=== PATIENT | female | born 1945 | race Caucasian/White ===

== ENCOUNTER 2018-05-31 18:41 | Inpatient (IN) | payer SELFPAY, OTHER ==
[2018-05-31] MEDS: morphine 4 MG/ML VIAL IV (19:27)
[2018-05-31] MEDS: ONDANSETRON 4 MG INJ IV (19:27)
[2018-05-31 20:10] LABS: ADD MAN DIFF? NO
[2018-05-31] MEDS: SOD CHLORIDE 0.9% 1,000 ML IV (20:10)
[2018-05-31 20:11] LABS: BASOPHILS % 0.2 % (0.0-2.0); EOSINOPHILS # 0.1 10^3/ul (0.0-0.5); EOSINOPHILS % 0.8 % (0.0-7.0); HEMATOCRIT 42.3 % (37.0-47.0); LYMPHOCYTES # 2.5 10^3/ul (0.8-2.9); LYMPHOCYTES % 27.5 % (15.0-51.0); MEAN CORPUSCULAR HEMOGLOBIN 28.3 pg (29.0-33.0); MEAN CORPUSCULAR HGB CONC 33.1 g/dl (32.0-37.0); MEAN CORPUSCULAR VOLUME 85.6 fl (82.0-101.0); MEAN PLATELET VOLUME 11.4 fl (7.4-10.4); MONOCYTE # 0.9 10^3/ul (0.3-0.9); MONOCYTES % 9.2 % (0.0-11.0); NEUTROPHIL # 5.7 10^3/ul (1.6-7.5); NEUTROPHILS % 61.9 % (39.0-77.0); PLATELET COUNT 232 10^3/UL (140-415); RED BLOOD COUNT 4.94 10^6/ul (4.20-5.40); RED CELL DISTRIBUTION WIDTH 12.5 % (11.5-14.5)
[2018-05-31 20:11] LABS: WHITE BLOOD COUNT 9.2 10^3/ul (4.8-10.8)
[2018-05-31 20:17] LABS: ALANINE AMINOTRANSFERASE 30 IU/L (13-69); ALBUMIN 4.6 g/dl (3.3-4.9); ALBUMIN/GLOBULIN RATIO 1.43; ALKALINE PHOSPHATASE 83 IU/L (42-121); ANION GAP 17 (8-16); ASPARTATE AMINO TRANSFERASE 24 IU/L (15-46); BILIRUBIN,INDIRECT 0.4 mg/dl (0-1.1); BILIRUBIN,TOTAL 0.4 mg/dl (0.2-1.3); BLOOD UREA NITROGEN 20 mg/dl (7-20); CALCIUM 10.1 mg/dl (8.4-10.2); CARBON DIOXIDE 28 mmol/L (21-31); CHLORIDE 100 mmol/L (97-110); CHOL/HDL RATIO 3.1 RATIO; CHOLESTEROL 144 mg/dl (100-200); CREATINE KINASE 40 IU/L (23-200); GLUCOSE 169 mg/dl (70-220); HDL CHOLESTEROL 46 mg/dl (33-92); LDL CHOLESTEROL,CALCULATED 73 mg/dl; SODIUM 141 mmol/L (135-144); TOTAL PROTEIN 7.8 g/dl (6.1-8.1); TRIGLYCERIDES 126 mg/dl (0-149)
[2018-05-31 20:19] LABS: INR 1.16; PARTIAL THROMBOPLASTIN TIME 30.3 Sec (25.0-35.0); PT RATIO 1.2
[2018-05-31 20:28] LABS: CK INDEX 0.9; CK-MB 0.37 ng/ml (0.0-2.4)
[2018-05-31 20:31] LABS: HEMOGLOBIN A1C 9.5 % (0-5.9)
[2018-05-31 20:32] LABS: TROPONIN-I < 0.012 ng/ml (0.000-0.120)
[2018-05-31] MEDS ORDERED: ACETAMINOPHEN 325 MG TAB PO (23:30)
[2018-05-31] MEDS ORDERED: ONDANSETRON 4 MG INJ IV (23:30)
[2018-06-01] MEDS: ASPIRIN 325 MG TAB PO (00:59)
[2018-06-01] MEDS: SOD CHLORIDE 0.9% 1,000 ML IV ×2 (01:44→03:00)
[2018-06-01] MEDS ORDERED: GLUCOSE GEL 15 GRAM TUBE PO ×2 (05:00)
[2018-06-01] MEDS ORDERED: GLUCOSE GEL 15 GRAM TUBE BUCCAL (05:00)
[2018-06-01] MEDS ORDERED: GLUCAGON 1 MG INJ IM (05:00)
[2018-06-01] MEDS ORDERED: DEXTROSE 50% 50 ML SYRINGE IV ×2 (05:00)
[2018-06-01] MEDS: INSULIN ASPART [NOVOLOG] 3 ML PEN SC ×4 (07:55→20:18)
[2018-06-01] MEDS: GABAPENTIN 300 MG CAP PO (08:14)
[2018-06-01] MEDS: DILTIAZEM (SR) 60 MG CAP PO ×2 (08:14→20:16)
[2018-06-01] MEDS: DORZOLAMIDE/TIMOLOL 10 ML OPH RIGHT EYE ×3 (08:14→20:16)
[2018-06-01] MEDS: ASPIRIN (EC) 81 MG TAB PO (08:14)
[2018-06-01] MEDS: BRIMONIDINE 0.2% 5 ML BTL RIGHT EYE ×3 (08:14→20:16)
[2018-06-01] MEDS: CHOLECALCIFEROL 2,000 UNIT CAP PO (08:15)
[2018-06-01] MEDS: VALSARTAN 160 MG TAB PO (08:15)
[2018-06-01] MEDS: HYDROCHLOROTHIAZIDE 25 MG TAB PO (08:15)
[2018-06-01] MEDS: INSULIN GLARGINE [LANtus] 3 ML PEN SC (08:32)
[2018-06-01] MEDS: ATORVASTATIN 20 MG TAB PO (20:15)
[2018-06-01] MEDS: hydrALAzine 20 MG INJ IV (21:00)
[2018-06-02] MEDS: ACCU-CHEK XX (02:18)
[2018-06-02] MEDS: SOD CHLORIDE 0.9% 1,000 ML IV (03:00)
[2018-06-02 07:39] LABS: ADD MAN DIFF? NO
[2018-06-02 07:45] LABS: WHITE BLOOD COUNT 7.1 10^3/ul (4.8-10.8)
[2018-06-02 07:45] LABS: BASOPHILS % 0.4 % (0.0-2.0); EOSINOPHILS # 0.1 10^3/ul (0.0-0.5); EOSINOPHILS % 1.7 % (0.0-7.0); HEMATOCRIT 39.1 % (37.0-47.0); HEMOGLOBIN 12.7 g/dl (12.0-16.0); LYMPHOCYTES # 1.8 10^3/ul (0.8-2.9); LYMPHOCYTES % 25.8 % (15.0-51.0); MEAN CORPUSCULAR HEMOGLOBIN 28.2 pg (29.0-33.0); MEAN CORPUSCULAR HGB CONC 32.5 g/dl (32.0-37.0); MEAN CORPUSCULAR VOLUME 86.9 fl (82.0-101.0); MEAN PLATELET VOLUME 11.1 fl (7.4-10.4); MONOCYTE # 0.7 10^3/ul (0.3-0.9); MONOCYTES % 9.3 % (0.0-11.0); NEUTROPHIL # 4.4 10^3/ul (1.6-7.5); NEUTROPHILS % 62.4 % (39.0-77.0); PLATELET COUNT 208 10^3/UL (140-415); RED CELL DISTRIBUTION WIDTH 12.4 % (11.5-14.5)
[2018-06-02 08:06] LABS: ANION GAP 18 (8-16); BLOOD UREA NITROGEN 23 mg/dl (7-20); CALCIUM 9.4 mg/dl (8.4-10.2); CARBON DIOXIDE 25 mmol/L (21-31); CHLORIDE 102 mmol/L (97-110); CHOL/HDL RATIO 3.2 RATIO; CHOLESTEROL 124 mg/dl (100-200); CREATININE 0.92 mg/dl (0.44-1.00); GLUCOSE 218 mg/dl (70-220); HDL CHOLESTEROL 38 mg/dl (33-92); LDL CHOLESTEROL,CALCULATED 60 mg/dl; POTASSIUM 3.9 mmol/L (3.5-5.1); SODIUM 141 mmol/L (135-144); TRIGLYCERIDES 128 mg/dl (0-149)
[2018-06-02] MEDS: INSULIN GLARGINE [LANtus] 3 ML PEN SC (08:13)
[2018-06-02] MEDS: INSULIN ASPART [NOVOLOG] 3 ML PEN SC ×6 (08:14→20:07)
[2018-06-02] MEDS: GABAPENTIN 300 MG CAP PO (08:42)
[2018-06-02] MEDS: HYDROCHLOROTHIAZIDE 25 MG TAB PO (08:42)
[2018-06-02] MEDS: ASPIRIN (EC) 81 MG TAB PO (08:42)
[2018-06-02] MEDS: VALSARTAN 160 MG TAB PO (08:42)
[2018-06-02] MEDS: CLOPIDOGREL 75 MG TAB NGT (08:43)
[2018-06-02] MEDS: BRIMONIDINE 0.2% 5 ML BTL RIGHT EYE ×3 (08:43→20:05)
[2018-06-02] MEDS: CHOLECALCIFEROL 2,000 UNIT CAP PO (08:43)
[2018-06-02] MEDS: DILTIAZEM (SR) 60 MG CAP PO ×2 (08:43→20:05)
[2018-06-02] MEDS: DORZOLAMIDE/TIMOLOL 10 ML OPH RIGHT EYE ×3 (08:43→20:05)
[2018-06-02] MEDS: [UNRECOGNIZED DRUG - REMARK] XX ×2 (10:00→17:18)
[2018-06-02] MEDS: AMLODIPINE 5 MG TAB PO (11:34)
[2018-06-02] MEDS: ATORVASTATIN 20 MG TAB PO (20:04)
[2018-06-03] MEDS: [UNRECOGNIZED DRUG - REMARK] XX ×2 (02:00→10:00)
[2018-06-03] MEDS: ACCU-CHEK XX (02:05)
[2018-06-03] MEDS: SOD CHLORIDE 0.9% 1,000 ML IV ×2 (03:00→05:56)
[2018-06-03] MEDS: INSULIN ASPART [NOVOLOG] 3 ML PEN SC ×7 (07:58→21:15)
[2018-06-03] MEDS: VALSARTAN 160 MG TAB PO (08:28)
[2018-06-03] MEDS: BRIMONIDINE 0.2% 5 ML BTL RIGHT EYE ×3 (08:28→20:26)
[2018-06-03] MEDS: DORZOLAMIDE/TIMOLOL 10 ML OPH RIGHT EYE ×3 (08:28→20:24)
[2018-06-03] MEDS: HYDROCHLOROTHIAZIDE 25 MG TAB PO (08:28)
[2018-06-03] MEDS: CHOLECALCIFEROL 2,000 UNIT CAP PO (08:29)
[2018-06-03] MEDS: GABAPENTIN 300 MG CAP PO (08:29)
[2018-06-03] MEDS: ASPIRIN (EC) 81 MG TAB PO (08:29)
[2018-06-03] MEDS: AMLODIPINE 5 MG TAB PO ×2 (08:29→20:24)
[2018-06-03] MEDS: CLOPIDOGREL 75 MG TAB NGT (08:29)
[2018-06-03] MEDS: DILTIAZEM (SR) 60 MG CAP PO ×2 (08:29→20:24)
[2018-06-03] MEDS: INSULIN GLARGINE [LANtus] 3 ML PEN SC (08:38)
[2018-06-03 09:22] LABS: ANION GAP 13 (8-16); BLOOD UREA NITROGEN 21 mg/dl (7-20); CALCIUM 9.2 mg/dl (8.4-10.2); CARBON DIOXIDE 25 mmol/L (21-31); CHLORIDE 107 mmol/L (97-110); CREATININE 0.94 mg/dl (0.44-1.00); GLUCOSE 190 mg/dl (70-220); POTASSIUM 4.1 mmol/L (3.5-5.1); SODIUM 141 mmol/L (135-144)
[2018-06-03] MEDS: DICLOFENAC 0.1% 2.5 ML OPH RIGHT EYE ×2 (17:31→20:24)
[2018-06-03] MEDS: hydrALAzine 20 MG INJ IV (20:23)
[2018-06-03] MEDS: ATORVASTATIN 20 MG TAB PO (20:24)
[2018-06-03 22:23] LABS: Allen Test ACCEPTAB; Arterial Base Excess -0.5 mmol/L (-3.0-3); Arterial Blood Gas Oxygen Sat 98.7 mmHG (95.0-100.0); Arterial COHb 0.2 % (0.0-3.0); Arterial Fraction of Oxyhgb 98.5 % (93.0-99.0); Arterial HCO3 22.8 mmol/L (22.0-26.0); Arterial MetHb 0 % (0.0-1.5); Arterial Total Hemglobin 13.3 g/dl (12.0-18.0); Arterial pCO2 33.5 mmhg (35-45); MODE NASAL CANNULA; Site Right Radial
[2018-06-04 01:19] LABS: TROPONIN-I < 0.010 ng/ml (0.000-0.120)
[2018-06-04] MEDS: ACCU-CHEK XX (02:00)
[2018-06-04] MEDS: INSULIN ASPART [NOVOLOG] 3 ML PEN SC ×7 (02:49→21:36)
[2018-06-04 07:22] LABS: CHOLESTEROL 121 mg/dl (100-200)
[2018-06-04 07:22] LABS: CHOL/HDL RATIO 3.1 RATIO; HDL CHOLESTEROL 39 mg/dl (33-92); LDL CHOLESTEROL,CALCULATED 55 mg/dl; TRIGLYCERIDES 136 mg/dl (0-149)
[2018-06-04 07:30] LABS: TROPONIN-I 0.014 ng/ml (0.000-0.120)
[2018-06-04 07:51] LABS: THYROID STIMULATING HORMONE 0.774 MIU/L (0.465-4.680)
[2018-06-04] MEDS: VALSARTAN 160 MG TAB PO (10:02)
[2018-06-04] MEDS: CLOPIDOGREL 75 MG TAB NGT (10:03)
[2018-06-04] MEDS: ASPIRIN (EC) 81 MG TAB PO (10:03)
[2018-06-04] MEDS: CHOLECALCIFEROL 2,000 UNIT CAP PO (10:03)
[2018-06-04] MEDS: GABAPENTIN 300 MG CAP PO (10:03)
[2018-06-04] MEDS: DICLOFENAC 0.1% 2.5 ML OPH RIGHT EYE ×4 (10:03→20:48)
[2018-06-04] MEDS: HYDROCHLOROTHIAZIDE 25 MG TAB PO (10:03)
[2018-06-04] MEDS: DORZOLAMIDE/TIMOLOL 10 ML OPH RIGHT EYE ×3 (10:04→20:48)
[2018-06-04] MEDS: BRIMONIDINE 0.2% 5 ML BTL RIGHT EYE ×3 (10:04→20:48)
[2018-06-04] MEDS: INSULIN GLARGINE [LANtus] 3 ML PEN SC (10:40)
[2018-06-04 13:18] LABS: TROPONIN-I < 0.010 ng/ml (0.000-0.120)
[2018-06-04 19:13] LABS: TROPONIN-I < 0.010 ng/ml (0.000-0.120)
[2018-06-04] MEDS: SOD CHLORIDE 0.9% 100 ML (19:28)
[2018-06-04] MEDS: IOHEXOL 300MG/ML 150 ML BTL (19:29)
[2018-06-04] MEDS: ATORVASTATIN 20 MG TAB PO (20:47)
[2018-06-05] MEDS: ACCU-CHEK XX (02:00)
[2018-06-05] MEDS: INSULIN ASPART [NOVOLOG] 3 ML PEN SC ×7 (07:41→20:24)
[2018-06-05] MEDS: CHOLECALCIFEROL 2,000 UNIT CAP PO (08:28)
[2018-06-05] MEDS: GABAPENTIN 300 MG CAP PO (08:29)
[2018-06-05] MEDS: VALSARTAN 160 MG TAB PO (08:29)
[2018-06-05] MEDS: CLOPIDOGREL 75 MG TAB NGT (08:29)
[2018-06-05] MEDS: ASPIRIN (EC) 81 MG TAB PO (08:29)
[2018-06-05] MEDS: HYDROCHLOROTHIAZIDE 25 MG TAB PO (08:29)
[2018-06-05] MEDS: DICLOFENAC 0.1% 2.5 ML OPH RIGHT EYE ×4 (08:31→20:15)
[2018-06-05] MEDS: BRIMONIDINE 0.2% 5 ML BTL RIGHT EYE ×3 (08:33→20:15)
[2018-06-05] MEDS: DORZOLAMIDE/TIMOLOL 10 ML OPH RIGHT EYE ×3 (08:35→20:15)
[2018-06-05] MEDS: INSULIN GLARGINE [LANtus] 3 ML PEN SC (08:38)
[2018-06-05 09:28] LABS: ANION GAP 13 (8-16); BLOOD UREA NITROGEN 30 mg/dl (7-20); CALCIUM 9.9 mg/dl (8.4-10.2); CARBON DIOXIDE 24 mmol/L (21-31); CHLORIDE 105 mmol/L (97-110); CREATININE 1.07 mg/dl (0.44-1.00); GLUCOSE 224 mg/dl (70-220); POTASSIUM 4.1 mmol/L (3.5-5.1); SODIUM 138 mmol/L (135-144)
[2018-06-05] MEDS: ACETAMINOPHEN 325 MG TAB PO (14:28)
[2018-06-05] MEDS: ATORVASTATIN 20 MG TAB PO (20:14)
[2018-06-06] MEDS: ACCU-CHEK XX (02:00)
[2018-06-06] MEDS: BRIMONIDINE 0.2% 5 ML BTL RIGHT EYE ×2 (08:00→12:07)
[2018-06-06] MEDS: DICLOFENAC 0.1% 2.5 ML OPH RIGHT EYE ×3 (08:00→16:45)
[2018-06-06] MEDS: DORZOLAMIDE/TIMOLOL 10 ML OPH RIGHT EYE ×2 (08:00→12:07)
[2018-06-06 08:13] LABS: ALANINE AMINOTRANSFERASE 20 IU/L (13-69); ALBUMIN 3.8 g/dl (3.3-4.9); ALBUMIN/GLOBULIN RATIO 1.26; ALKALINE PHOSPHATASE 65 IU/L (42-121); ANION GAP 14 (8-16); ASPARTATE AMINO TRANSFERASE 14 IU/L (15-46); BILIRUBIN,INDIRECT 0.5 mg/dl (0-1.1); BILIRUBIN,TOTAL 0.5 mg/dl (0.2-1.3); BLOOD UREA NITROGEN 33 mg/dl (7-20); CALCIUM 9.7 mg/dl (8.4-10.2); CARBON DIOXIDE 26 mmol/L (21-31); CHLORIDE 103 mmol/L (97-110); CREATININE 1.17 mg/dl (0.44-1.00); GLUCOSE 175 mg/dl (70-220); SODIUM 139 mmol/L (135-144); TOTAL PROTEIN 6.8 g/dl (6.1-8.1)
[2018-06-06] MEDS: INSULIN ASPART [NOVOLOG] 3 ML PEN SC ×6 (08:21→17:32)
[2018-06-06] MEDS: INSULIN GLARGINE [LANtus] 3 ML PEN SC (08:21)
[2018-06-06] MEDS: CHOLECALCIFEROL 2,000 UNIT CAP PO (08:49)
[2018-06-06] MEDS: VALSARTAN 160 MG TAB PO (08:49)
[2018-06-06] MEDS: GABAPENTIN 300 MG CAP PO (08:50)
[2018-06-06] MEDS: ASPIRIN (EC) 81 MG TAB PO (08:50)
[2018-06-06] MEDS: HYDROCHLOROTHIAZIDE 25 MG TAB PO (08:50)
[2018-06-06] MEDS: CLOPIDOGREL 75 MG TAB NGT (08:50)
[2018-06-06] MEDS: SOD CHLORIDE 0.9% 250 ML IV (17:15)
== END 2018-06-06 18:44 | disposition home or self-care (01) | DRG 65 ==
LOC: TEL 23:05 → E/R 18:41
DX: I63.9 Cerebral infarction, unspecified (principal); G81.91 Hemiplegia, unspecified affecting right dominant side; I16.1 Hypertensive emergency; N17.9 Acute kidney failure, unspecified; I12.9 Hypertensive chronic kidney disease with stage 1 through stage 4 chronic kidney disease, or unspecified chronic kidney disease; E11.22 Type 2 diabetes mellitus with diabetic chronic kidney disease; N18.9 Chronic kidney disease, unspecified; R00.1 Bradycardia, unspecified; I45.10 Unspecified right bundle-branch block; H54.62 Unqualified visual loss, left eye, normal vision right eye
CPT/HCPCS: 36415; 36600; 70450; 70470; 70549; 70553; 71045; 76775; 80048; 80053; 80061; 82550; 82553; 82803; 82962; 83036; 84443; 84484; 85025; 85610; 85730; 92610; 93005; 93306; 93880; 97161; 97165; 99285-25

== ENCOUNTER 2018-07-19 09:09 | Emergency (ER) | payer OTHER ==
[2018-07-19] MEDS: LIDOCAINE 1% (MDV) 20 ML INJ SC (10:29)
[2018-07-19] MEDS: CLINDAMYCIN 300 MG/D5W (PMX) 50 ML IVPB (10:37)
== END 2018-07-19 11:46 | disposition home or self-care (01) ==
LOC: FTE 09:09
DX: L02.415 Cutaneous abscess of right lower limb (principal); E11.9 Type 2 diabetes mellitus without complications; I10 Essential (primary) hypertension; Z79.4 Long term (current) use of insulin; Z79.82 Long term (current) use of aspirin
CPT/HCPCS: 10060; 96374; 99284-25

== ENCOUNTER 2018-07-21 08:10 | Emergency (ER) | payer OTHER | END 2018-07-21 08:59 | disposition home or self-care (01) | LOC: FTE 08:10 | DX: Z48.01 Encounter for change or removal of surgical wound dressing (principal); I10 Essential (primary) hypertension; E11.9 Type 2 diabetes mellitus without complications; Z79.4 Long term (current) use of insulin; Z79.82 Long term (current) use of aspirin | CPT/HCPCS: 99281; Z7502 ==